=== PATIENT | female | born 1965 | race Caucasian/White ===

== ENCOUNTER 2021-09-14 07:21 | Emergency (ER) | payer OTHER ==
[2021-09-14] MEDS ORDERED: NORCO 5-325 TA1 EACH PO (08:39)
[2021-09-14] MEDS ORDERED: KEFLEX250 MG PO (08:39)
== END 2021-09-14 12:52 | disposition home or self-care (01) ==
LOC: FER 07:21
DX: S62.640A Nondisplaced fracture of proximal phalanx of right index finger, initial encounter for closed fracture (principal); S61.210A Laceration without foreign body of right index finger without damage to nail, initial encounter; F17.210 Nicotine dependence, cigarettes, uncomplicated; Z23 Encounter for immunization; W23.0XXA Caught, crushed, jammed, or pinched between moving objects, initial encounter; Y92.89 Other specified places as the place of occurrence of the external cause; Y99.0 Civilian activity done for income or pay
CPT/HCPCS: 73130; 90471; 90715